=== PATIENT | male | born 1950 | race Caucasian/White ===

== ENCOUNTER 2017-07-31 11:10 | Day surgery (SDC) | payer OTHER ==
[~2017-07-31] VITALS: Ht 170.2 cm; Wt 103.0 kg
[~2017-07-31 11:10] MED LIST: ALPR1 PO; ASCO500 PO; Aspirin EC81 MG PO; Augmentin 500-1 EACH PO; BYDUREON2 MG SQ; CITA20; COMBIVENT RESPIM4 GM INH; CYAN500 PO; ERGO400; ERGO400 PO; ESCI10 PO; ESCI20 PO; FISH OIL + D31 EACH PO; FISH1000; FLAX; FLAX PO; HYDACE5 PO; HYDACE7.5; LINZESS290 MCG PO; METF500 PO; METPHE10 PO; METPRE4DP PO; Multiple Vitam1 EAC1; Multiple Vitam1 EAC1 PO; OXYC5; OXYC80ER PO; PREG50; SPIHYD; VITAMIN B COMP
== END 2017-07-31 15:25 | disposition home or self-care (01) ==
LOC: ORSCSDS 11:10
PROVIDERS: Podiatrist Foot & Ankle Surgery
PROC: 0JBQ0ZX Excision of Right Foot Subcutaneous Tissue and Fascia, Open Approach, Diagnostic (ICD-10-PCS; principal; 2017-07-31 12:30)
DX: R22.41 Localized swelling, mass and lump, right lower limb (principal); M72.2 Plantar fascial fibromatosis; E11.9 Type 2 diabetes mellitus without complications; F41.9 Anxiety disorder, unspecified; Z79.899 Other long term (current) drug therapy
CPT/HCPCS: 82947; 88304; J0171; J0690; J1100; J2250; J2405; J3010; J7120